=== PATIENT | male | born 1945 | race Caucasian/White ===

== ENCOUNTER 2022-01-03 13:35 | Emergency (ER) | payer MEDICARE, OTHER, SELFPAY ==
[2022-01-03] VITALS (7 sets, daily range): BP systolic 128–154; BP diastolic 60–67; PULSE 71–100; RESP 14; TEMP 36.5; O2SAT 98–100; BMI 27.4
[2022-01-03] MEDS: SODIUM CHLORIDE 0.9% 1,000 ML 1000 ML IV (14:09)
[2022-01-03 14:12] LABS: Add Manual Diff / Slide Review NO; Basophils Absolute Auto 100 /uL (0-100); Basophils Percent Auto 0.6 % (0-2); Eosinophils Absolute Auto 100 /uL (0-450); Eosinophils Percent Auto 0.7 % (2-4); Hematocrit 40.4 % (41-53); Hemoglobin 13.7 g/dL (13.5-17.5); Lymphocytes Absolute Auto 3100 /uL (1100-4500); Lymphocytes Percent Auto 31.9 % (25-40); Mean Corpuscular HGB Conc 33.9 % (30-36); Mean Corpuscular Hemoglobin 28.3 PG (26-34); Mean Corpuscular Volume 83.4 fL (80-100); Monocytes Absolute Auto 600 /uL (0-900); Neutrophils Absolute Auto 6000 /uL (1500-7000); Neutrophils Percent Auto 60.8 % (50-75); Platelet Count 177 X10^3/uL (150-400); Red Blood Cell Count 4.84 X10^6/uL (4.5-5.9); Red Cell Distribution Width 13.4 % (11.6-14.8); White Blood Cell Count 9.8 X10^3/uL (4.5-11.0)
[2022-01-03 14:15] LABS: HEMOLYSIS 47 (0-50)
--- NOTE | 2022-01-03 14:16 | ED_ITS ---
HPI - General Adult General Chief complaint: Diabetic Problem Stated complaint: t2dib glucose >300 ph ref >thrist x 10 Time Seen by Provider: 01/03/22 14:02 Source: patient Mode of arrival: Ambulatory Limitations: no limitations History of Present Illness HPI narrative: Patient is a 76-year-old male. Is a type 2 diabetic. Has been on insulin for years. For the past 2 years has been on Trulicity. Approximately 2 weeks ago he started to have an increase in his blood sugars. They have been above 300 for this time. A did change his Trulicity dose however did not make much of a difference. He is having quite a bit of thirst and also increased urination. He contacted his primary doctor who sent him to the emergency department for concerns about an infection. He is not having any fevers. No chest pain. No shortness of breath. No abdominal pain. No nausea vomiting. He is urinating more than normal but no other UTI like symptoms. No skin changes. He is not been on insulin since starting Trulicity. Related Data Allergies Allergy/AdvReac Type Severity Reaction Status Date / Time No Known Drug Allergies Allergy Verified 01/03/22 14:08 Review of Systems Constitutional Constitutional: Reports system reviewed and no additional complaints, except as documented ENT Ears, Nose, Mouth, and Throat: Reports system reviewed and no additional complaints, except as documented Cardiovascular Cardiovascular: Reports system reviewed and no additional complaints, except as documented Respiratory Respiratory: Reports system reviewed and no additional complaints, except as documented Gastrointestinal Gastrointestinal: Reports system reviewed and no additional complaints, except as documented Genitourinary Genitourinary: Reports system reviewed and no additional complaints, except as documented Integumentary/Breasts Skin/Breast: Reports system reviewed and no additional complaints, except as documented Neurologic Neurologic: Reports system reviewed and no additional complaints, except as documented Hematologic/Lymphatic On Anticoagulants: No Patient History Medical History Diabetes Social History Smoking Status: Never smoker Smoking Status: Never smoker alcohol intake frequency: holidays/special occasions only Substance Use Type: does not use Exam Initial Vital Signs Initial Vital Signs: Vital Signs Pulse Rate 100 H 01/03/22 13:49 Pulse Oximetry 99 01/03/22 13:49 Const General: cooperative, comfortable, well developed and No ill appearing [facility] Head: normal to inspection and normocephalic Resp Effort & Inspection: normal respiratory effort Auscultation: clear to auscultation bilaterally Cardio Rate: regular rate Rhythm: regular rhythm GI Inspection: normal to inspection Skin General: no rashes or lesions noted Neuro General: patient alert, patient awake, patient oriented x3 and moves all extremities Extrem General: normal to inspection and capillary refill normal Psych Appearance: grossly normal and well kempt Course Orders Ordered: ED Orders 01/03/22 14:00 Complete Blood Count AUTO DIFF Stat Comprehensive Metabolic Panel Stat Ketones (Beta-Hydroxybutyrate) Stat Lipase Stat Magnesium Stat Phosphorous Stat 01/03/22 15:32 Urinalysis and Microscopic Stat Discontinued Medications Sodium Chloride (Normal Saline 0.9%) 1,000 mls @ 1,000 mls/hr IV BOLUS ONE Stop: 01/03/22 15:02 Last Infusion: 01/03/22 15:11 Dose: 0 mls/hr Documented By: Admin: 01/03/22 14:09 Dose: 1,000 mls/hr Documented By: NELLY Vital Signs Vital signs: Vital Signs - 8 hr 01/03/22 14:02 01/03/22 13:49 01/03/22 13:50 Temperature 97.7 F Pulse Rate 72 100 H Respiratory Rate 14 Blood Pressure 154/67 H 154/67 H Pulse Oximetry 99 99 Oxygen Delivery Method Room Air 01/03/22 13:50 01/03/22 14:00 01/03/22 14:01 Temperature Pulse Rate 75 72 Respiratory Rate Blood Pressure 138/63 Pulse Oximetry 98 99 Oxygen Delivery Method Room Air 01/03/22 14:01 01/03/22 14:30 01/03/22 14:30 Temperature Pulse Rate 71 77 Respiratory Rate Blood Pressure 128/60 Pulse Oximetry 99 99 Oxygen Delivery Method 01/03/22 15:00 01/03/22 15:00 Temperature Pulse Rate 71 Respiratory Rate Blood Pressure 137/65 Pulse Oximetry 100 Oxygen Delivery Method Medical Decision Making Lab Data Lab results reviewed: Yes I reviewed the patient's lab results. Result diagrams: 01/03/22 14:00 01/03/22 14:00 Labs: Lab Results 01/03/22 01/03/22 01/03/22 Range/Units 14:00 14:00 15:32 WBC 9.8 (4.5-11.0) X10^3/uL RBC 4.84 (4.5-5.9) X10^6/uL Hgb 13.7 (13.5-17.5) g/dL Hct 40.4 L (41-53) % MCV 83.4 (80-100) fL MCH 28.3 (26-34) PG MCHC 33.9 (30-36) % RDW 13.4 (11.6-14.8) % Plt Count 177 (150-400) X10^3/uL Neut % (Auto) 60.8 (50-75) % Lymph % (Auto) 31.9 (25-40) % [place] % (Auto) 6.0 (3-14) % Eos % (Auto) 0.7 L (2-4) % Baso % (Auto) 0.6 (0-2) % Neut # (Auto) 6000 (3022-6157) /uL Lymph # (Auto) 3100 (7116-5993) /uL [place] # (Auto) 600 (0-900) /uL Eos # (Auto) 100 (0-450) /uL Baso # (Auto) 100 (0-100) /uL Sodium 136 L (137-145) mmol/L Potassium 4.3 (3.4-5.1) mmol/L Chloride 98 (98-107) mmol/L Carbon Dioxide 26 (22-32) mmol/L BUN 17 (9-20) mg/dL Creatinine 0.85 (0.66-1.25) mg/dL Estimated GFR > 60 (>60) mL/min BUN/Creatinine Ratio 20.0 (6-22) Glucose 281 H (80-110) mg/dL Calcium 9.6 (8.4-10.2) mg/dL Phosphorus 3.3 (2.3-3.7) mg/dL Magnesium 1.7 (1.6-2.3) mg/dL Total Bilirubin 0.7 (0.2-1.3) mg/dL AST 27 (17-59) IU/L ALT 27 (<50) IU/L Alkaline Phosphatase 50 (38-126) U/L Total Protein 7.2 (6.3-8.2) g/dL Albumin 4.6 (3.5-5.0) g/dL Globulin 2.6 (1.7-4.1) g/dL Albumin/Globulin Ratio 1.8 (1.0-2.8) Lipase 164 (23-300) U/L Urine Color Yellow Urine Appearance Clear Urine pH 5.0 (4.5-8.0) Ur Specific [place] 1.025 (1.000-1.035) Urine Protein Negative (Negative) Urine Glucose (UA) 2+ H (Negative) g/dL Urine Ketones Negative (NEGATIVE) Urine Occult Blood Negative (Negative) Urine Nitrate Negative (Negative) Urine Bilirubin Negative (NEGATIVE) Urine Urobilinogen 0.2 (0.2) E.U./dL Ur Leukocyte Esterase Negative (NEGATIVE) Urine RBC 0-1/hpf (0-5/HPF) Urine WBC 0-1/hpf (0-5/HPF) Ur Squamous Epith Cells 0-1 /hpf (0-5/HPF) Urine Bacteria None seen (None) Ur Culture Indicated? Cult not indicated Ketones 0.04 (<0.27) mmol/L MDM Narrative Medical decision making narrative: Patient is hyperglycemic but there is no specific signs of any infection. He is not in DKA. Had a discussion with him regarding his blood sugar. He will contact his primary doctor tomorrow for follow-up. No changes to any of his medications today. Discharge Plan Departure Patient Disposition: Home Clinical Impression: Diabetes mellitus with hyperglycemia Activity Restrictions/Additional Instructions: I recommend that you continue to take all of your medications as directed and tomorrow contact your primary doctor for a follow-up. Return to the emergency department for any new symptoms. Referrals: Evelina Sosa DO [Primary Care Provider] -
[2022-01-03 14:20] LABS: Alanine Aminotransferase 27 IU/L (<50); Albumin 4.6 g/dL (3.5-5.0); Albumin Globulin Ratio 1.8 (1.0-2.8); Alkaline Phosphatase 50 U/L (38-126); Aspartate Aminotransferase 27 IU/L (17-59); Bilirubin Total 0.7 mg/dL (0.2-1.3); Blood Urea Nitrogen 17 mg/dL (9-20); Calcium 9.6 mg/dL (8.4-10.2); Carbon Dioxide 26 mmol/L (22-32); Chloride 98 mmol/L (98-107); Estimated Glomerular Filt Rate > 60 mL/min (>60); Globulin 2.6 g/dL (1.7-4.1); Glucose 281 mg/dL (80-110); Lipase 164 U/L (23-300); Magnesium 1.7 mg/dL (1.6-2.3); Phosphorous 3.3 mg/dL (2.3-3.7); Potassium 4.3 mmol/L (3.4-5.1); Sodium 136 mmol/L (137-145); Total Protein 7.2 g/dL (6.3-8.2)
[2022-01-03 15:02] LABS: Ketones (Beta-Hydroxybutyrate) 0.04 mmol/L (<0.27)
[2022-01-03 16:36] LABS: Appearance Urine UA CLEAR; Bacteria Urine None Seen; Bilirubin Urine UA NEGATIVE (NEGATIVE); Color Urine UA YELLOW; Culture Indicated Urine Cult Not Indicated; Glucose Urine UA 2+ g/dL (Negative); Ketones Urine UA NEGATIVE (NEGATIVE); Leukocyte Esterase Urine UA NEGATIVE (NEGATIVE); Nitrite Urine UA NEGATIVE (Negative); Occult Blood Urine UA NEGATIVE (Negative); Protein Urine UA NEGATIVE (Negative); RBC Urine 0-1/HPF (0-5/HPF); Specific Gravity Urine UA 1.025 (1.000-1.035); Squamous Epithelial Cell Urine 0-1 /HPF (0-5/HPF); Urobilinogen Urine UA 0.2 E.U./dL (0.2); WBC Urine 0-1/HPF (0-5/HPF)
== END 2022-01-03 16:49 | disposition home or self-care (01) ==
PROVIDERS: Emergency Provider Emergency Medicine; PCP Family Medicine
DX: E11.65 Type 2 diabetes mellitus with hyperglycemia (principal)
CPT/HCPCS: 36415; 80053; 81001; 82009; 83690; 83735; 84100; 85025; 96360; 99284

== ENCOUNTER → 2024-08-27 13:31 | Outpatient (CLI) | payer MEDICARE, OTHER, SELFPAY ==
--- NOTE | 2024-08-27 13:35 | DI.CT.S_ITS ---
PROCEDURE: CT ANGIO HEAD AND NECK INDICATIONS: SYNCOPE COLLAPSE TECHNIQUE: After the administration of intravenous contrast, 1 mm thick sections acquired from the aortic arch through the [place] of [place]. 3-dimensional ovnklwj-vwhqodzsd-rndazngsaw (MIP) and/or volume rendering reformats were acquired of the central intracranial vasculature and neck separately. For radiation dose reduction, the following was used: automated exposure control, adjustment of mA and/or kV according to patient size. COMPARISON: None. FINDINGS: Image quality: Diagnostic. Cerebral CT Angiogram: Internal carotid arteries: No acute findings. Intracranial ICA are patent with no significant stenosis. No occlusion. No aneurysm. Anterior cerebral arteries: Unremarkable. No significant stenosis. No occlusion. No aneurysm. Middle cerebral arteries: Unremarkable. No significant stenosis. No occlusion. No aneurysm. Posterior cerebral arteries: Unremarkable. No significant stenosis. No occlusion. No aneurysm. Basilar artery: Unremarkable. No significant stenosis. No occlusion. No aneurysm. Vertebral arteries: Unremarkable as visualized. Dural venous sinuses: Unremarkable given phase of enhancement. Other: Arterial phase appearance of the brain parenchyma is unremarkable. Neck CT Angiogram: Internal carotid arteries: Unremarkable. No significant stenosis. No dissection or occlusion. Common carotid arteries: Unremarkable. No significant stenosis. No dissection or occlusion. External carotid arteries: 50-60% narrowing within the left external carotid artery. Vertebral arteries: Unremarkable. No significant stenosis. No dissection or occlusion. Aortic Arch and Mediastinum: Partially visualized aortic arch unremarkable without evidence of aneurysm. Origins of the great vessels unremarkable. Other: Arterial phase soft tissues of the neck and chest are unremarkable. Thyroid gland is heterogeneous with punctate areas of calcification. IMPRESSION: 50-60% narrowing within the left external carotid artery. Heterogeneous thyroid with punctate areas of calcification. No priors. Thyroid ultrasound may be obtained on a nonemergent basis as clinically indicated for further evaluation. Any quantitative measurements of stenosis were performed using NASCET criteria. Dictated by: Tracey Arora M.D. on 08/27/2024 at 17:24 Approved by: Tracey Arora M.D. on 08/27/2024 at 17:29
== END ==
LOC: CT 13:34
PROVIDERS: PCP Family Medicine; Referring Provider Family Medicine; Visit Provider Family Medicine
DX: I65.22 Occlusion and stenosis of left carotid artery (principal); R55 Syncope and collapse
CPT/HCPCS: 70496; 70498; Q9967